=== PATIENT | female | born 1955 | race Caucasian/White ===

== ENCOUNTER 2021-07-23 18:24 | Emergency (ER) | payer OTHER ==
[2021-07-23 18:49] LABS: Absolute Lymphocytes (CBC) 2.3 K/uL (0.7-4.9); Basophils % 0.8 % (0-1.3); Hematocrit 42.9 % (36.0-45.0); Lymphocytes % 24.7 % (15.3-44.8); MPV 8.4 fL (7.6-11.3); RBC Red Blood Cell Count 4.96 M/uL (3.86-4.86)
[2021-07-23 18:52] LABS: Protime INR 1.02
--- NOTE | 2021-07-23 19:06 | ER ---
Nurse's Notes [facility] Name: Rachana Schilling Age: 65 yrs Sex: Female : 1955 Arrival Date: 07/23/2021 Time: 18:25 Bed 16 Private MD: Diagnosis: Facial weakness Presentation: 07/23 18:40 Chief complaint: Patient states: "My left eye felt dry and swollen yesterday and then kg today around 3 I noticed it looked a little droopy and my right side of my chin and lip were numb and I tried to spit and couldn't'.". Coronavirus screen: Vaccine status: Patient reports receiving the 1st dose of the Covid vaccine. Date February 03, 2021 Miller \\T\\ Miller At this time, the client does not indicate any symptoms associated with coronavirus-19. Ebola Screen: Patient negative for fever greater than or equal to 101.5 degrees Fahrenheit, and additional compatible Ebola Virus Disease symptoms Patient denies exposure to infectious person. Patient denies travel to an Ebola-affected area in the 21 days before illness onset. Initial Sepsis Screen: Does the patient meet any 2 criteria? No. Patient's initial sepsis screen is negative. Does the patient have a suspected source of infection? No. Patient's initial sepsis screen is negative. Risk Assessment: Do you want to hurt yourself or someone else? Patient reports no desire to harm self or others. Onset of symptoms was July 22, 2021. 18:40 Method Of Arrival: Ambulatory kg 18:40 Acuity: DOT 3 kg 19:50 Note Provider at bedside to discuss CT head results. Further testing needed. Pt states df1 understanding. 20:01 Note Pt up with steady gait to restroom. df1 Triage Assessment: 18:56 General: Appears in no apparent distress. Behavior is calm, cooperative, appropriate kg for age, quiet. Pain: Complains of pain in left eye. Historical: - Allergies: 20:01 Etodolac; df1 - Home Meds: 18:56 levothyroxine 125 mcg oral cap [Active]; chlorthalidone 25 mg Oral tab 1 tab once daily kg [Active]; Bystolic 10 mg oral tab 1 tab once daily [Active]; amlodipine 5 mg tab 1 tab once daily [Active]; olmesartan 40 mg oral tab 1 tab once daily [Active]; ezetimibe 10 mg oral tab 1 tab once daily [Active]; rosuvastatin 5 mg oral tab 1 tab once daily [Active]; aspirin 81 mg Oral chew 1 tab once daily [Active]; zinc sulfate 50 mg zinc (220 mg) Oral tab [Active]; magnesium oxide 400 mg magnesium Oral tab 400 mg daily [Active]; Fish Oil 1,000 mg oral cap [Active]; Vitamin D Oral [Active]; CoQ-10 100 mg oral cap [Active]; Vitamin C 1,000 mg Oral tab 1,000 mg [Active]; - PMHx: 18:56 Diabetes mellitus; Hypertensive disorder; Hypercholesterolemia; kg - PSHx: 18:56 section; Left ovary removed; Left thyroid removed; Septal sx; kg - Immunization history:: Client reports receiving the Miller \\T\\ Miller single-dose vaccine. Date received February 03, 2021. - Social history:: Patient/guardian denies using alcohol, street drugs, The patient lives with family, Smoking status: Patient denies any tobacco usage or history of. - Family history:: not pertinent. Screenin:52 Abuse screen: Denies threats or abuse. Denies injuries from another. Nutritional kg screening: No deficits noted. Tuberculosis screening: No symptoms or risk factors identified. Fall Risk None identified. 18:52 VAN Screening: Arm Drift: Patient shows no arm weakness. Patient is VAN negative. kg Visual Disturbance: No visual disturbance noted. Aphasia: No aphasia noted. Neglect: No neglect noted. 19:16 The patient has not been NPO before screening. The patient is alert, able to follow kg commands. The patient does not exhibit slurred or garbled speech The patient is not exhibiting difficulty speaking. The patient does not exhibit difficulty understanding words. The patient is able to swallow own secretions with no drooling or need for suction. Patient tolerated one teaspoon of water. No drooling, immediate coughing, gurgling, or clearing of the throat was noted. The patient tolerated 90mL of water. No drooling, immediate coughing, gurgling, or clearing of the throat was noted. The patient passed the bedside swallow screening. Oral medications may be given as ordered. Contact Physician for further diet orders. Assessment: 19:16 General: Appears in no apparent distress. Behavior is calm, cooperative, appropriate kg for age, quiet. Pain: Complains of pain in left eye. Neuro: Level of Consciousness is awake, alert, obeys commands, Oriented to person, place, time, situation, Appropriate for age Drill Instructor are equal bilaterally Moves all extremities. Gait is steady, Speech is normal, Facial droop on right, Reports numbness in Chin since 1500 Pt stated, " I'm not able to spit and I cant blink my left eye.". Cardiovascular: No deficits noted. Respiratory: No deficits noted. GI: No deficits noted. : No deficits noted. EENT: No deficits noted. Derm: No deficits noted. Musculoskeletal: No deficits noted. Vital Signs: 18:40 BP 138 / 78; Pulse 61; Resp 26; Temp 98.8(O); Pulse Ox 100% on R/A; Weight 111.13 kg kg (R); Height 5 ft. 4 in. (162.56 cm) (R); Pain 1/10; 19:48 BP 129 / 61; Pulse 62; Resp 22; Pulse Ox 100% on R/A; df1 20:48 BP 132 / 63; Pulse 63; Resp 18; Pulse Ox 99% on R/A; df1 18:40 Body Mass Index 42.05 (111.13 kg, 162.56 cm) kg NIH Stroke Scale Scores: 19:16 NIHSS Score: 2 kg 19:49 NIHSS Score: 1 df1 20:48 NIHSS Score: 1 df1 ED Course: 18:25 Patient arrived in ED. ds1 18:40 Initial lab(s) drawn, by me, sent to lab. Inserted saline lock: 20 gauge in left vg1 antecubital area, using aseptic technique. Blood collected. 18:41 Julio Zhong MD is Attending Physician. ma2 18:42 Mary Salcido, LESLY is Primary Nurse. es2 18:52 Triage completed. kg 18:52 No provider procedures requiring assistance completed. kg 18:52 Patient has correct armband on for positive identification. Placed in gown. Bed in low kg position. Call light in reach. Side rails up X2. 18:53 Patient has correct armband on for positive identification. Bed in low position. Call es2 light in reach. 18:56 Arm band placed on. kg 19:05 Seven Bryant MD is Referral Physician. ma2 19:07 CT Stroke Brain w/o Contrast In Process Unspecified. EDMS 19:08 Stroke CXR 1 View In Process Unspecified. EDMS 19:29 Attending Physician role handed off by Julio Zhong MD rn 19:29 Tacos Pruitt MD is Attending Physician. rn 19:31 COVID-19 : Document "Date of Symptom Onset" if Symptomatic. Sent. df1 19:55 CT Head Angio In Process Unspecified. EDMS 19:55 CT Neck Angio In Process Unspecified. EDMS 20:21 Seven Bryant MD is Referral Physician. rn 20:50 IV discontinued, intact. df1 Administered Medications: 19:39 Drug: predniSONE 40 mg Route: PO; df1 19:39 Drug: Acyclovir 400 mg Route: PO; df1 19:39 Drug: Aspirin Chewable Tablet 324 mg Route: PO; df1 Outcome: 19:05 Discharge ordered by MD. ma2 20:21 Discharge ordered by MD. rn 20:49 Discharged to home ambulatory. df1 20:49 Condition: stable 20:49 Discharge instructions given to patient, Instructed on discharge instructions, follow up and referral plans. Demonstrated understanding of instructions, follow-up care, medications. 20:50 Patient left the ED. df1 NIH Stroke Scale - NIH Stroke Score Date: 07/23/2021 Time: 19:16 Total Score = 2 1a. Level of Consciousness (LOC) - 0(Alert) 1b. Level of Consciousness (LOC) (Month \\T\\ Age) - 0(Both) 1c. LOC Commands (Open \\T\\ Closes Eyes/Tool Repairer) - 0(Both) 2. Best Gaze (Lateral Gaze Paresis) - 0(Normal) 3. Visual Field Loss - 0(No visual loss) 4. Facial Palsy - 1(Minor Paralysis) 5a. Left Arm: Motor (10-second hold) - 0(No drift) 5b. Right Arm: Motor (10-second hold) - 0(No drift) 6a. Left Leg: Motor (5-second hold - always test supine) - 0(No drift) 6b. Right Leg: Motor (5-second hold - always test supine) - 0(No drift) 7. Limb Ataxia (finger/nose \\T\\ heel/mascorro - test with eyes open) - 0(Absent) 8. Sensory Loss (pinprick arms/legs/face) - 1(Mild to moderate loss) 9. Best Language: Aphasia (description/naming/reading) - 0(No aphasia) 10. Dysarthria (speech clarity - read or repeat words) - 0(Normal) 11. Extinction and Inattention (visual/tactile/auditory/spatial/personal) - 0(No abnormality) Initials: kg NIH Stroke Scale - NIH Stroke Score Date: 07/23/2021 Time: 19:49 Total Score = 1 1a. Level of Consciousness (LOC) - 0(Alert) 1b. Level of Consciousness (LOC) (Month \\T\\ Age) - 0(Both) 1c. LOC Commands (Open \\T\\ Closes Eyes/Tool Repairer) - 0(Both) 2. Best Gaze (Lateral Gaze Paresis) - 0(Normal) 3. Visual Field Loss - 0(No visual loss) 4. Facial Palsy - 1(Minor Paralysis) 5a. Left Arm: Motor (10-second hold) - 0(No drift) 5b. Right Arm: Motor (10-second hold) - 0(No drift) 6a. Left Leg: Motor (5-second hold - always test supine) - 0(No drift) 6b. Right Leg: Motor (5-second hold - always test supine) - 0(No drift) 7. Limb Ataxia (finger/nose \\T\\ heel/mascorro - test with eyes open) - 0(Absent) 8. Sensory Loss (pinprick arms/legs/face) - 0(Normal) 9. Best Language: Aphasia (description/naming/reading) - 0(No aphasia) 10. Dysarthria (speech clarity - read or repeat words) - 0(Normal) 11. Extinction and Inattention (visual/tactile/auditory/spatial/personal) - 0(No abnormality) Initials: df1 NIH Stroke Scale - NIH Stroke Score Date: 07/23/2021 Time: 20:48 Total Score = 1 1a. Level of Consciousness (LOC) - 0(Alert) 1b. Level of Consciousness (LOC) (Month \\T\\ Age) - 0(Both) 1c. LOC Commands (Open \\T\\ Closes Eyes/Tool Repairer) - 0(Both) 2. Best Gaze (Lateral Gaze Paresis) - 0(Normal) 3. Visual Field Loss - 0(No visual loss) 4. Facial Palsy - 1(Minor Paralysis) 5a. Left Arm: Motor (10-second hold) - 0(No drift) 5b. Right Arm: Motor (10-second hold) - 0(No drift) 6a. Left Leg: Motor (5-second hold - always test supine) - 0(No drift) 6b. Right Leg: Motor (5-second hold - always test supine) - 0(No drift) 7. Limb Ataxia (finger/nose \\T\\ heel/mascorro - test with eyes open) - 0(Absent) 8. Sensory Loss (pinprick arms/legs/face) - 0(Normal) 9. Best Language: Aphasia (description/naming/reading) - 0(No aphasia) 10. Dysarthria (speech clarity - read or repeat words) - 0(Normal) 11. Extinction and Inattention (visual/tactile/auditory/spatial/personal) - 0(No abnormality) Initials: df1 Signatures: Dispatcher [employer] EDMS Kelsey Landa ds1 Tacos Pruitt MD MD rn Alzahri, Mohammad, MD MD ma2 Elisabeth Hurst, RN RN 1 Cristina Mccain RN RN kg Furlich, Dawn df1 Mary Salcido RN RN es2 Corrections: (The following items were deleted from the chart) 20:00 19:31 CORONAVIRUS drawn and sent. df1 EDMS
--- NOTE | 2021-07-23 19:06 | EDPHYS ---
Physician Documentation [facility] Name: Rachana Schilling Age: 65 yrs Sex: Female : 1955 Arrival Date: 07/23/2021 Time: 18:25 Bed 16 Private MD: ED Physician Tacos Pruitt HPI: 07/23 19:02 This 65 yrs old Female presents to ER via Ambulatory with complaints of ma2 Facial Numbness-R Side. 19:02 The patient presents to the emergency department with facial droop including forehead. ma2 Onset: The symptoms/episode began/occurred suddenly, 1 day(s) ago. Associated signs and symptoms: Pertinent negatives: fever, nausea, paresthesias, seizure. Current symptoms: Currently, the patient is not experiencing any symptoms. The patient has not experienced similar symptoms in the past. Historical: - Allergies: 20:01 Etodolac; df1 - Home Meds: 18:56 levothyroxine 125 mcg oral cap [Active]; chlorthalidone 25 mg Oral tab 1 tab once daily kg [Active]; Bystolic 10 mg oral tab 1 tab once daily [Active]; amlodipine 5 mg tab 1 tab once daily [Active]; olmesartan 40 mg oral tab 1 tab once daily [Active]; ezetimibe 10 mg oral tab 1 tab once daily [Active]; rosuvastatin 5 mg oral tab 1 tab once daily [Active]; aspirin 81 mg Oral chew 1 tab once daily [Active]; zinc sulfate 50 mg zinc (220 mg) Oral tab [Active]; magnesium oxide 400 mg magnesium Oral tab 400 mg daily [Active]; Fish Oil 1,000 mg oral cap [Active]; Vitamin D Oral [Active]; CoQ-10 100 mg oral cap [Active]; Vitamin C 1,000 mg Oral tab 1,000 mg [Active]; - PMHx: 18:56 Diabetes mellitus; Hypertensive disorder; Hypercholesterolemia; kg - PSHx: 18:56 section; Left ovary removed; Left thyroid removed; Septal sx; kg - Immunization history:: Client reports receiving the Miller \\T\\ Miller single-dose vaccine. Date received February 03, 2021. - Social history:: Patient/guardian denies using alcohol, street drugs, The patient lives with family, Smoking status: Patient denies any tobacco usage or history of. - Family history:: not pertinent. ROS: 19:02 Constitutional: Negative for fever, chills, and weight loss. ma2 19:02 All other systems are negative. Exam: 19:02 Constitutional: This is a well developed, well nourished patient who is awake, alert, ma2 and in no acute distress. Eyes: Pupils equal round and reactive to light, extra-ocular motions intact. Lids and lashes normal. Conjunctiva and sclera are non-icteric and not injected. Cornea within normal limits. Periorbital areas with no swelling, redness, or edema. ENT: Nares patent. No nasal discharge, no septal abnormalities noted. Tympanic membranes are normal and external auditory canals are clear. Oropharynx with no redness, swelling, or masses, exudates, or evidence of obstruction, uvula midline. Mucous membranes moist. Neck: Trachea midline, no thyromegaly or masses palpated, and no cervical lymphadenopathy. Supple, full range of motion without nuchal rigidity, or vertebral point tenderness. No Meningismus. Chest/axilla: Normal chest wall appearance and motion. Nontender with no deformity. No lesions are appreciated. Cardiovascular: Regular rate and rhythm with a normal S1 and S2. No gallops, murmurs, or rubs. Normal PMI, no JVD. No pulse deficits. Respiratory: Lungs have equal breath sounds bilaterally, clear to auscultation and percussion. No rales, rhonchi or wheezes noted. No increased work of breathing, no retractions or nasal flaring. Abdomen/GI: Soft, non-tender, with normal bowel sounds. No distension or tympany. No guarding or rebound. No evidence of tenderness throughout. 19:02 Head/face: Noted is facial droop on right, weakness aincluding forehead. 19:02 Neuro: Cranial nerves: facial droop noted on right, with forehead involved. otherwise no neurodeficit. Vital Signs: 18:40 BP 138 / 78; Pulse 61; Resp 26; Temp 98.8(O); Pulse Ox 100% on R/A; Weight 111.13 kg kg (R); Height 5 ft. 4 in. (162.56 cm) (R); Pain 1/10; 19:48 BP 129 / 61; Pulse 62; Resp 22; Pulse Ox 100% on R/A; df1 20:48 BP 132 / 63; Pulse 63; Resp 18; Pulse Ox 99% on R/A; df1 18:40 Body Mass Index 42.05 (111.13 kg, 162.56 cm) kg NIH Stroke Scale Scores: 19:16 NIHSS Score: 2 kg 19:49 NIHSS Score: 1 df1 20:48 NIHSS Score: 1 df1 MDM: 18:41 Patient medically screened. ma2 19:02 Data reviewed: vital signs, nurses notes, EMS record. Counseling: I had a detailed ma2 discussion with the patient and/or guardian regarding: the historical points, exam findings, and any diagnostic results supporting the discharge/admit diagnosis, the presence of at least one elevated blood pressure reading (>120/80) during this emergency department visit, the need for outpatient follow up. Response to treatment: the patient's symptoms have markedly improved after treatment. ED course: patient has right sided bells palsy. 19:27 ED course: Pt signed out to me by Dr. 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 Radiology called and non-specific finding temporal lobe that could indicate possible ischemia. CT angio head and neck ordered. Pt evaluated by me at this point, reports symptoms involving right eye began , then right face/mouth yesterday and worse today. No other focal neuro complaints or findings. Even if subacute stroke, out of TPA window and discussed this with patient. . 20:20 ED course: CT angio head and neck without flow abnormalities found. Spoke with patient rn told her that the safest thing to do given CT head findings asymmetric, would be to admit and get an MRI. Patient states does not want to stay and get a hospital bill just for an MRI. Discussed this with patient and told her that we could be missing a small stroke but did not show up on the CAT scan and needs an MRI to rule out. Patient understands this and still wants to go home. She states she does not feel like she had a stroke. She plans on following up with PCP and getting an outpatient MRI. Patient understands that this could be also palsy versus atypical stroke and understands risks of going home and not being admitted like recommended by me.. 07/23 18:34 Order name: Amylase, Serum; Complete Time: 19:55 ma2 07/23 18:34 Order name: Basic Metabolic Panel; Complete Time: 19:55 [facility] 07/23 18:34 Order name: CBC with Diff; Complete Time: 19:01 [facility] 07/23 18:34 Order name: CPK; Complete Time: 19:55 [facility] 07/23 18:34 Order name: Ckmb; Complete Time: 19:55 [facility] 07/23 18:34 Order name: Hepatic Function; Complete Time: 19:55 [facility] 07/23 18:34 Order name: Lipase; Complete Time: 19:55 [facility] 07/23 18:34 Order name: Magnesium; Complete Time: 19:55 [facility] 07/23 18:34 Order name: Protime (+inr); Complete Time: 19:01 [facility] 07/23 18:34 Order name: Ptt, Activated; Complete Time: 19:01 [facility] 07/23 18:34 Order name: Troponin (emerg Dept Use Only); Complete Time: 19:55 [facility] 07/23 18:44 Order name: Glucose, Ancillary Testing; Complete Time: 19:01 [facility] 07/23 19:26 Order name: COVID-19 : Document "Date of Symptom Onset" if Symptomatic. 07/23 18:34 Order name: CT Stroke Brain w/o Contrast; Complete Time: 19:24 [facility] 07/23 18:34 Order name: Stroke CXR 1 View; Complete Time: 19:24 [facility] 07/23 18:34 Order name: EKG; Complete Time: 18:35 [facility] 07/23 18:34 Order name: Accucheck; Complete Time: 18:39 [facility] 07/23 18:34 Order name: Cardiac monitoring; Complete Time: 18:39 [facility] 07/23 18:34 Order name: EKG - Nurse/Tech; Complete Time: 18:40 [facility] 07/23 18:34 Order name: IV Saline Lock; Complete Time: 18:40 [facility] 07/23 18:34 Order name: Labs collected and sent; Complete Time: 18:40 [facility] 07/23 18:34 Order name: O2 Per Protocol; Complete Time: 18:40 [facility] 07/23 18:34 Order name: O2 Sat Monitoring; Complete Time: 18:40 [facility] 07/23 19:26 Order name: CT Head Angio; Complete Time: 20:09 07/23 19:26 Order name: CT Neck Angio; Complete Time: 20:09 rn Administered Medications: 19:39 Drug: predniSONE 40 mg Route: PO; df1 19:39 Drug: Acyclovir 400 mg Route: PO; df1 19:39 Drug: Aspirin Chewable Tablet 324 mg Route: PO; df1 Disposition Summary: 07/23/21 20:21 Discharge Ordered Location: Home(07/23/21 20:21) rn Problem: new rn Symptoms: have improved rn Condition: Stable(07/23/21 20:21) rn Diagnosis - Facial weakness rn Followup: ma2 - With: - When: Tomorrow - Reason: Continuance of care Discharge Instructions: - Discharge Summary Sheet rn - Matos Palsy, Adult rn - Stroke learning developer - Weakness rn Forms: - Medication Reconciliation Form rn - Thank You Letter rn - Antibiotic restaurant management internship - Prescription Opioid Use rn Prescriptions: - Prednisone 20 mg Oral Tablet - take 1 tablet by ORAL route as directed for 10 days Take 3 tablets by mouth rn once daily for 5 days, followed by 2 tablets by mouth once daily for 3 days, followed by 1 tablet by mouth once daily for 2 days. Total of 10 days.; 23 tablet; Refills: 0, Product Selection Permitted NIH Stroke Scale - NIH Stroke Score Date: 07/23/2021 Time: 19:16 Total Score = 2 1a. Level of Consciousness (LOC) - 0(Alert) 1b. Level of Consciousness (LOC) (Month \\T\\ Age) - 0(Both) 1c. LOC Commands (Open \\T\\ Closes Eyes/Ship Boat Or Barge Mate) - 0(Both) 2. Best Gaze (Lateral Gaze Paresis) - 0(Normal) 3. Visual Field Loss - 0(No visual loss) 4. Facial Palsy - 1(Minor Paralysis) 5a. Left Arm: Motor (10-second hold) - 0(No drift) 5b. Right Arm: Motor (10-second hold) - 0(No drift) 6a. Left Leg: Motor (5-second hold - always test supine) - 0(No drift) 6b. Right Leg: Motor (5-second hold - always test supine) - 0(No drift) 7. Limb Ataxia (finger/nose \\T\\ heel/mascorro - test with eyes open) - 0(Absent) 8. Sensory Loss (pinprick arms/legs/face) - 1(Mild to moderate loss) 9. Best Language: Aphasia (description/naming/reading) - 0(No aphasia) 10. Dysarthria (speech clarity - read or repeat words) - 0(Normal) 11. Extinction and Inattention (visual/tactile/auditory/spatial/personal) - 0(No abnormality) Initials: kg NIH Stroke Scale - NIH Stroke Score Date: 07/23/2021 Time: 19:49 Total Score = 1 1a. Level of Consciousness (LOC) - 0(Alert) 1b. Level of Consciousness (LOC) (Month \\T\\ Age) - 0(Both) 1c. LOC Commands (Open \\T\\ Closes Eyes/Ship Boat Or Barge Mate) - 0(Both) 2. Best Gaze (Lateral Gaze Paresis) - 0(Normal) 3. Visual Field Loss - 0(No visual loss) 4. Facial Palsy - 1(Minor Paralysis) 5a. Left Arm: Motor (10-second hold) - 0(No drift) 5b. Right Arm: Motor (10-second hold) - 0(No drift) 6a. Left Leg: Motor (5-second hold - always test supine) - 0(No drift) 6b. Right Leg: Motor (5-second hold - always test supine) - 0(No drift) 7. Limb Ataxia (finger/nose \\T\\ heel/mascorro - test with eyes open) - 0(Absent) 8. Sensory Loss (pinprick arms/legs/face) - 0(Normal) 9. Best Language: Aphasia (description/naming/reading) - 0(No aphasia) 10. Dysarthria (speech clarity - read or repeat words) - 0(Normal) 11. Extinction and Inattention (visual/tactile/auditory/spatial/personal) - 0(No abnormality) Initials: df1 NIH Stroke Scale - NIH Stroke Score Date: 07/23/2021 Time: 20:48 Total Score = 1 1a. Level of Consciousness (LOC) - 0(Alert) 1b. Level of Consciousness (LOC) (Month \\T\\ Age) - 0(Both) 1c. LOC Commands (Open \\T\\ Closes Eyes/Ship Boat Or Barge Mate) - 0(Both) 2. Best Gaze (Lateral Gaze Paresis) - 0(Normal) 3. Visual Field Loss - 0(No visual loss) 4. Facial Palsy - 1(Minor Paralysis) 5a. Left Arm: Motor (10-second hold) - 0(No drift) 5b. Right Arm: Motor (10-second hold) - 0(No drift) 6a. Left Leg: Motor (5-second hold - always test supine) - 0(No drift) 6b. Right Leg: Motor (5-second hold - always test supine) - 0(No drift) 7. Limb Ataxia (finger/nose \\T\\ heel/mascorro - test with eyes open) - 0(Absent) 8. Sensory Loss (pinprick arms/legs/face) - 0(Normal) 9. Best Language: Aphasia (description/naming/reading) - 0(No aphasia) 10. Dysarthria (speech clarity - read or repeat words) - 0(Normal) 11. Extinction and Inattention (visual/tactile/auditory/spatial/personal) - 0(No abnormality) Initials: df1 Signatures: Dispatcher [employer] EDMS Tacos Pruitt MD MD rn Alzahri, Mohammad, MD MD ma2 Graham, Kristen RN RN Asia Sandy df1 Corrections: (The following items were deleted from the chart) 19:30 19:05 Home ma2 rn 19:30 19:05 Stable ma2 rn 19:30 19:05 Matos's palsy - right ma2 rn 20:00 19:26 CORONAVIRUS ordered. EDMS EDMS 20:21 20:21 Matos's palsy - right rn rn
--- NOTE | 2021-07-23 19:14 | RAD REPORT ---
EXAM DESCRIPTION: RAD - Chest Single View - 07/23/2021 7:08 pm CLINICAL HISTORY: CONGESTION Chest pain. COMPARISON: No comparisons FINDINGS: Portable technique limits examination quality. Pulmonary interstitial markings are mildly prominent. This is nonspecific but may indicate viral infe ction or bronchitis. The heart is normal in size. No displaced fractures.
--- NOTE | 2021-07-23 19:17 | RAD REPORT ---
EXAM DESCRIPTION: CT - Ct Stroke Brain Wo Cont - 07/23/2021 7:07 pm CLINICAL HISTORY: facial numbness Headache, drowsiness, CVA symptomology. COMPARISON: Sinus Wo Cont dated 09/26/2016 TECHNIQUE: All CT scans are performed using dose optimization technique as appropriate and may inclu de automated exposure control or mA/KV adjustment according to patient size. FINDINGS: No intracranial hemorrhage, hydrocephalus or extra-axial fluid collection.Subtle asymmetri c diminished density is seen in the left temporal region may represent acute ischemia. The paranasal sinuses and mastoids are clear. The calvarium is intact. IMPRESSION: Subtle asymmetric diminished density in the left temporal region relative to the right c ould indicate acute ischemia. MRI brain followup would be recommended. The findings were discussed with Dr. Pruitt in the ER On 07/23/2021 at 7:09 p.m. by telephone.
[2021-07-23 19:24] LABS: ALT/SGPT 41 U/L (12-78); AST/SGOT 26 U/L (15-37); Albumin 3.9 g/dL (3.4-5.0); Alkaline Phosphatase 117 U/L (45-117); Amylase 32 U/L (25-115); BUN Blood Urea Nitrogen 10 mg/dL (7-18); Bicarbonate 31 mmol/L (21-32); Bilirubin Direct 0.2 mg/dL (0-0.2); Bilirubin Total 0.7 mg/dL (0.2-1.0); Creatine Phosphokinase 80 U/L (26-192); Glucose Level 150 mg/dL (74-106); Lipase 345 U/L (73-393); Magnesium 1.9 mg/dL (1.8-2.4); Potassium 3.3 mmol/L (3.5-5.1); Protein, Total 7.5 g/dL (6.4-8.2); Sodium Level 138 mmol/L (136-145); Troponin (Emerg Dept Use Only) < 0.02 ng/mL (0.0-0.045)
[2021-07-23 19:30] LABS: CKMB Creatine Kinase MB < 1.0 ng/mL (1.0-3.6)
[2021-07-23] MEDS ORDERED: ACYCLOVIR 400 MG TABLET ONE (19:58)
[2021-07-23] MEDS ORDERED: predniSONE 20 MG TAB ONE (19:58)
[2021-07-23] MEDS ORDERED: ASPIRIN 81 MG CHEWABLE TABLET ONE (19:58)
--- NOTE | 2021-07-23 20:02 | RAD REPORT ---
EXAM DESCRIPTION: CT - Head angio - 07/23/2021 7:55 pm CLINICAL HISTORY: right facial droop Headache, drowsiness, CVA symptomology COMPARISON: Ct Stroke Brain Wo Cont dated 07/23/2021; Sinus Wo Cont dated 09/26/2016; Neck Angio date d 07/23/2021 TECHNIQUE: CT angiography of the head was performed with MIPs. All CT scans are performed using dose optimization technique as appropriate and may include automated exposure control or mA/KV adjustment according to patient size. FINDINGS: No evidence of aneurysm is detected. No flow-limiting stenosis or vascular malformation id entified. Antegrade flow is seen in the vertebral arteries. The vertebral arteries are codominant. The visualized dural venous sinuses are patent. IMPRESSION: No significant flow abnormality is detected.
--- NOTE | 2021-07-23 20:04 | RAD REPORT ---
EXAM DESCRIPTION: CT - Neck Angio - 07/23/2021 7:55 pm CLINICAL HISTORY: right facial weakness Headache, drowsiness, CVA symptomology COMPARISON: Ct Stroke Brain Wo Cont dated 07/23/2021 TECHNIQUE: CT angiography of the neck vessels was performed with MIPs. All CT scans are performed using dose optimization technique as appropriate and may include automated exposure control or mA/KV adjustment according to patient size. FINDINGS: A left aortic arch is identified with normal three vessel configuration of the great vesse ls. No significant flow abnormality is seen of the common carotid bilaterally. No significant stenosis is identified involving the cervical segments of both internal carotid arteri es. Normal flow is seen within both vertebral arteries. Moderate lower cervical degenerative spondylosis. IMPRESSION: No significant flow abnormality of the neck vessels is identified.
[2021-07-23 20:57] VITALS: TEMP 98.8
[2021-07-23 20:59] VITALS: BP 132/63; O2SAT 99
== END 2021-07-23 20:50 | disposition home or self-care (01) ==
LOC: ER 18:24
DX: R29.810 Facial weakness (principal); Z20.822 Contact with and (suspected) exposure to COVID-19; E11.9 Type 2 diabetes mellitus without complications; I10 Essential (primary) hypertension; E78.00 Pure hypercholesterolemia, unspecified
CPT/HCPCS: 93005; 85025; 80048; 36415; 82150; 83735; 82550; 85610; 82947; 80076; 85730; 84484; 82553; 83690; 70496; 70498; 70450; 71045; 99284; U0003; Q9967; J7512